=== PATIENT | male | born 1945 | race Caucasian/White ===

== ENCOUNTER 2020-05-15 15:56 | Inpatient (IN) ==
[2020-05-15] MEDS ORDERED: ACETAMINOPHEN 500 MG TABLET PO STA (16:29)
[2020-05-15 16:53] LABS: Basophils % 0.4 % (0.0-0.8); Eosinophils % 0.1 % (0.00-10.9); Hematocrit 47.5 VOL% (42.0-52.0); Hemoglobin 15.7 GM/DL (14.0-18.0); Immature Granulocytes % 1.1 %; Immature Granulocytes Absolute 0.11 #; Lymphocytes # 0.4 10*3/uL (1.4-4.0); Lymphocytes % 3.9 % (21.2-54.2); Mean Corpuscular HGB Conc 33.1 GM/DL (32-36); Mean Corpuscular Volume 84.2 FL (87-102); Mean Platelet Volume 11.9 FL (9.6-12.0); Monocytes % 6.9 % (1.7-12.7); Neutrophils % 87.6 % (38.7-73.9); Platelet Count 170 T/CUMM (130-400); Red Blood Count 5.64 MC/CUMM (3.8-5.5); Red Cell Distribution Width 15.1 % (9.3-17.3); White Blood Count 9.9 T/CUMM (4-12)
[2020-05-15 17:03] LABS: PT Patient Result 10.8 SECS (9.8-11.9)
[2020-05-15 17:12] LABS: Alanine Aminotransferase 49 U/L (16-61); Albumin 2.4 G/DL (3.4-5.0); Alkaline Phosphatase 62 U/L (45-117); Aspartate Amino Transferase 43 U/L (0-37); Bilirubin,Total < 0.39 MG/DL (0.2-1.0); Blood Urea Nitrogen 44 MG/DL (7-18); Calcium 8.8 MG/DL (8.5-10.1); Carbon Dioxide 22 MMOL/L (21-32); Estimated Glom Filtration Rate 27 ML/MIN; Glucose 286 MG/DL (74-106); Osmolality,Calculated 286.4 MOS/KG (273-304); Potassium 4.4 MMOL/L (3.5-5.1); Sodium 133 MMOL/L (136-145); Total Protein 6.8 G/DL (5.0-7.5)
[2020-05-15 17:13] LABS: Band Neutrophils 1 % (0-10); Lymphocytes 5 % (20-55); Platelet Estimate Adequate; Segmented Neutrophils 88 % (50-85); Total Cells Counted 100
[2020-05-15] MEDS ORDERED: VANCOMYCIN INJ 1,000 MG in SODIUM CHLORIDE 0.9% 100 ML IV STA (17:43)
[2020-05-15] MEDS ORDERED: VANCOMYCIN INJ 1,000 MG in SODIUM CHLORIDE 0.9% 250 ML IV STA (17:46)
[2020-05-15] MEDS ORDERED: cefTRIAXone 2,000 MG in SODIUM CHLORIDE 0.9% 100 ML IV STA (17:48)
[2020-05-15 17:51] LABS: Bacteria,Urine Occasional /HPF (Few); Bilirubin,Urine Negative (Negative); Blood, Urine Small mg/dL (Negative); Glucose,Urine (UA) >=500 mg/dL (Negative); Ketones,Urine Negative (Negative); Mucus,Urine Occasional /LPF (Occasional); Nitrite,Urine Negative (Negative); Protein,Urine >=500 MG/DL; RBC,Urine 3 /HPF (0-4); Urine Appearance Slightly Hazy (Clear); Urine Color Yellow (Yellow); Urine Specific Gravity 1.022 (1.001-1.035); Urine Urobilinogen < 2.0 EU/DL (0.2-1.0); WBC,Urine 2 /HPF (0-6)
[2020-05-15 18:41] LABS: Lymphocytes,CSF 2 %; Monocytes,CSF 17 %; Neutrophils,CSF 81 %
[2020-05-15 18:43] LABS: Appearance,CSF Cloudy; Red Blood Cell,CSF > 100000 C/CUMM
[2020-05-15 18:44] LABS: White Blood Cell,CSF 3300 C/CUMM
[2020-05-15 18:59] LABS: Glucose,CSF 109 MG/DL (40-70)
[2020-05-15] MEDS ORDERED: SODIUM CHLORIDE 0.9% 2,000 ML IV STA (19:40)
[2020-05-15] MEDS ORDERED: DEXTROSE 50% 25 GM/50 ML VIAL IV PRN ×2 (19:41)
[2020-05-15] MEDS ORDERED: GLUCAGON 1 MG VIAL IM PRN ×2 (19:41)
[2020-05-15] MEDS ORDERED: ONDANSETRON 4 MG/2 ML VIAL IV PRN (19:41)
[2020-05-15] MEDS ORDERED: FLUTICASONE 50 MCG NASAL SPRAY 16 GM BOTTLE BOTH NARES PRN (19:56)
[2020-05-15] MEDS ORDERED: SODIUM CHLORIDE 0.9% 1,000 ML IV STA (20:08)
[2020-05-15] MEDS: hydrALAZINE 20 MG/1 ML VIAL IV PRN (20:52)
[2020-05-15] MEDS: INSULIN REGULAR 100 UNIT/ML SUBCUT SCH (22:06)
[2020-05-15] MEDS: CYCLOBENZAPRINE 10 MG TABLET PO SCH (22:06)
[2020-05-15] MEDS: AMPICILLIN INJ 2,000 MG in SODIUM CHLORIDE 0.9% 100 ML IV SCH (22:07)
[2020-05-15] MEDS: ACYCLOVIR INJ 700 MG in SODIUM CHLORIDE 0.9% 100 ML IV SCH (23:18)
[2020-05-16] MEDS: AMPICILLIN INJ 2,000 MG in SODIUM CHLORIDE 0.9% 100 ML IV SCH ×3 (03:29→16:18)
[2020-05-16] MEDS ORDERED: VANCOMYCIN INJ 1,000 MG in SODIUM CHLORIDE 0.9% 250 ML IV SCH ×2 (04:00→17:00)
[2020-05-16 06:03] LABS: Basophils # 0.1 10*3/uL (0.0-0.2); Basophils % 0.6 % (0.0-0.8); Eosinophils # 0.1 10*3/uL (0.0-0.87); Eosinophils % 0.4 % (0.00-10.9); Hematocrit 36.7 VOL% (42.0-52.0); Immature Granulocytes % 0.8 %; Immature Granulocytes Absolute 0.14 #; Lymphocytes # 1.2 10*3/uL (1.4-4.0); Lymphocytes % 7.4 % (21.2-54.2); Mean Corpuscular HGB Conc 33.8 GM/DL (32-36); Mean Platelet Volume 12.3 FL (9.6-12.0); Monocytes % 10.4 % (1.7-12.7); Neutrophils % 80.4 % (38.7-73.9); Platelet Count 217 T/CUMM (130-400); Red Blood Count 4.37 MC/CUMM (3.8-5.5); Red Cell Distribution Width 15.2 % (9.3-17.3); White Blood Count 16.8 T/CUMM (4-12)
[2020-05-16 06:05] LABS: Hemoglobin 12.4 GM/DL (14.0-18.0)
[2020-05-16 06:21] LABS: Calcium 8.5 MG/DL (8.5-10.1); Osmolality,Calculated 282.8 MOS/KG (273-304); Potassium 4.2 MMOL/L (3.5-5.1); Thyroid Stimulating Hormone 4.45 uIU/ml (0.358-3.74)
[2020-05-16] MEDS: sitaGLIPtin 25 MG TABLET PO SCH (08:23)
[2020-05-16] MEDS: ENOXAPARIN 30 MG/0.3 ML SYRINGE SUBCUT SCH (08:23)
[2020-05-16] MEDS: NEBIVOLOL 5 MG TABLET PO SCH (08:23)
[2020-05-16] MEDS: cefTRIAXone 2,000 MG in SYRINGE 1 EACH IV SCH ×2 (08:23→20:34)
[2020-05-16] MEDS: CYCLOBENZAPRINE 10 MG TABLET PO SCH ×3 (08:23→20:34)
[2020-05-16] MEDS: ASPIRIN EC 81 MG TABLET PO SCH (08:23)
[2020-05-16] MEDS: LEVOTHYROXINE 75 MCG TABLET PO SCH (08:23)
[2020-05-16] MEDS: INSULIN GLARGINE 100 UNIT/ML SUBCUT SCH (08:24)
[2020-05-16] MEDS ORDERED: predniSONE 5 MG TABLET PO SCH (09:00)
[2020-05-16] MEDS: ACYCLOVIR INJ 700 MG in SODIUM CHLORIDE 0.9% 100 ML IV SCH ×2 (11:56→23:54)
[2020-05-16] MEDS: INSULIN REGULAR 100 UNIT/ML SUBCUT SCH ×4 (14:14→20:35)
[2020-05-16] MEDS ORDERED: TROLAMINE SALICYLATE 10% CREAM 85 GM TUBE TOP PRN (15:21)
[2020-05-16] MEDS: predniSONE 20 MG TABLET PO SCH (16:18)
[2020-05-16] MEDS: VANCOMYCIN INJ 2,000 MG in SODIUM CHLORIDE 0.9% 500 ML IV SCH (20:34)
[2020-05-17] MEDS: AMPICILLIN INJ 2,000 MG in SODIUM CHLORIDE 0.9% 100 ML IV SCH ×5 (00:45→23:45)
[2020-05-17 06:00] LABS: Basophils # 0.1 10*3/uL (0.0-0.2); Basophils % 0.4 % (0.0-0.8); Eosinophils % 0.1 % (0.00-10.9); Hematocrit 33.2 VOL% (42.0-52.0); Hemoglobin 10.9 GM/DL (14.0-18.0); Immature Granulocytes % 0.8 %; Immature Granulocytes Absolute 0.11 #; Lymphocytes # 0.9 10*3/uL (1.4-4.0); Mean Corpuscular HGB Conc 32.8 GM/DL (32-36); Mean Corpuscular Volume 84.9 FL (87-102); Mean Platelet Volume 12.5 FL (9.6-12.0); Monocytes % 9.8 % (1.7-12.7); Neutrophils % 81.9 % (38.7-73.9); Platelet Count 175 T/CUMM (130-400); Red Blood Count 3.91 MC/CUMM (3.8-5.5); Red Cell Distribution Width 15.3 % (9.3-17.3); White Blood Count 13.1 T/CUMM (4-12)
[2020-05-17 06:14] LABS: Calcium 7.8 MG/DL (8.5-10.1); Osmolality,Calculated 285.1 MOS/KG (273-304); Osmolality,Calculated 286.1 MOS/KG (273-304); Potassium 4.2 MMOL/L (3.5-5.1)
[2020-05-17] MEDS: INSULIN REGULAR 100 UNIT/ML SUBCUT SCH ×4 (09:07→21:37)
[2020-05-17] MEDS: ENOXAPARIN 30 MG/0.3 ML SYRINGE SUBCUT SCH (09:10)
[2020-05-17] MEDS: INSULIN GLARGINE 100 UNIT/ML SUBCUT SCH (09:10)
[2020-05-17] MEDS: CYCLOBENZAPRINE 10 MG TABLET PO SCH ×3 (09:11→21:21)
[2020-05-17] MEDS: LEVOTHYROXINE 75 MCG TABLET PO SCH (09:11)
[2020-05-17] MEDS: NEBIVOLOL 5 MG TABLET PO SCH (09:11)
[2020-05-17] MEDS: cefTRIAXone 2,000 MG in SYRINGE 1 EACH IV SCH ×2 (09:11→21:22)
[2020-05-17] MEDS: MAGNESIUM HYDROXIDE SUSP 30 ML UDCUP PO PRN (09:11)
[2020-05-17] MEDS: ASPIRIN EC 81 MG TABLET PO SCH (09:11)
[2020-05-17] MEDS: sitaGLIPtin 25 MG TABLET PO SCH (09:11)
[2020-05-17] MEDS: predniSONE 20 MG TABLET PO SCH (09:11)
[2020-05-17] MEDS: LOSARTAN 50 MG TABLET PO SCH (09:11)
[2020-05-17] MEDS ORDERED: MORPHINE 4 MG/1 ML VIAL IV ONE (10:30)
[2020-05-17] MEDS: POLYETHYLENE GLYCOL POWDER 17 GM PACK PO SCH (11:44)
[2020-05-17] MEDS: ACYCLOVIR INJ 700 MG in SODIUM CHLORIDE 0.9% 100 ML IV SCH (11:59)
[2020-05-17] MEDS: VANCOMYCIN INJ 2,000 MG in SODIUM CHLORIDE 0.9% 500 ML IV SCH (21:20)
[2020-05-17] MEDS: oxyCODONE/ACETAMINOPHEN 5-325 MG TABLET PO PRN (21:21)
[2020-05-17] MEDS: CHLORHEXIDINE 0.12% ORAL RINSE 60 ML BOTTLE SWISH/SPIT SCH (21:22)
[2020-05-18] MEDS: ACYCLOVIR INJ 700 MG in SODIUM CHLORIDE 0.9% 100 ML IV SCH (00:49)
[2020-05-18] MEDS: oxyCODONE/ACETAMINOPHEN 5-325 MG TABLET PO PRN ×3 (05:27→18:00)
[2020-05-18] MEDS: AMPICILLIN INJ 2,000 MG in SODIUM CHLORIDE 0.9% 100 ML IV SCH ×3 (05:28→18:00)
[2020-05-18] MEDS: MAGNESIUM HYDROXIDE SUSP 30 ML UDCUP PO PRN (05:28)
[2020-05-18 05:49] LABS: Basophils # 0.1 10*3/uL (0.0-0.2); Basophils % 0.4 % (0.0-0.8); Eosinophils # 0.1 10*3/uL (0.0-0.87); Eosinophils % 0.7 % (0.00-10.9); Hematocrit 32.6 VOL% (42.0-52.0); Hemoglobin 10.8 GM/DL (14.0-18.0); Immature Granulocytes Absolute 0.12 #; Lymphocytes # 1.1 10*3/uL (1.4-4.0); Lymphocytes % 9.3 % (21.2-54.2); Mean Corpuscular HGB Conc 33.1 GM/DL (32-36); Mean Corpuscular Volume 84.9 FL (87-102); Monocytes % 11.9 % (1.7-12.7); Neutrophils % 76.7 % (38.7-73.9); Platelet Count 198 T/CUMM (130-400); Red Blood Count 3.84 MC/CUMM (3.8-5.5); Red Cell Distribution Width 15.2 % (9.3-17.3); White Blood Count 12.2 T/CUMM (4-12)
[2020-05-18 06:02] LABS: Osmolality,Calculated 290.7 MOS/KG (273-304); Potassium 3.8 MMOL/L (3.5-5.1)
[2020-05-18] MEDS: INSULIN REGULAR 100 UNIT/ML SUBCUT SCH ×4 (08:11→21:21)
[2020-05-18] MEDS: cefTRIAXone 2,000 MG in SYRINGE 1 EACH IV SCH ×2 (08:39→21:22)
[2020-05-18] MEDS: NEBIVOLOL 5 MG TABLET PO SCH (08:41)
[2020-05-18] MEDS: predniSONE 20 MG TABLET PO SCH (08:41)
[2020-05-18] MEDS: sitaGLIPtin 25 MG TABLET PO SCH (08:41)
[2020-05-18] MEDS: ASPIRIN EC 81 MG TABLET PO SCH (08:41)
[2020-05-18] MEDS: LOSARTAN 50 MG TABLET PO SCH (08:42)
[2020-05-18] MEDS: CYCLOBENZAPRINE 10 MG TABLET PO SCH ×3 (08:42→21:23)
[2020-05-18] MEDS: ENOXAPARIN 30 MG/0.3 ML SYRINGE SUBCUT SCH (08:44)
[2020-05-18] MEDS: INSULIN GLARGINE 100 UNIT/ML SUBCUT SCH (08:44)
[2020-05-18] MEDS: CHLORHEXIDINE 0.12% ORAL RINSE 60 ML BOTTLE SWISH/SPIT SCH ×2 (08:44→21:23)
[2020-05-18] MEDS: POLYETHYLENE GLYCOL POWDER 17 GM PACK PO SCH (08:45)
[2020-05-18] MEDS: VANCOMYCIN INJ 2,000 MG in SODIUM CHLORIDE 0.9% 500 ML IV SCH (20:26)
[2020-05-19] MEDS: oxyCODONE/ACETAMINOPHEN 5-325 MG TABLET PO PRN ×4 (00:24→21:24)
[2020-05-19] MEDS: AMPICILLIN INJ 2,000 MG in SODIUM CHLORIDE 0.9% 100 ML IV SCH ×4 (00:24→23:52)
[2020-05-19] MEDS: LEVOTHYROXINE 75 MCG TABLET PO SCH (05:52)
[2020-05-19 05:54] LABS: Basophils % 0.4 % (0.0-0.8); Eosinophils # 0.1 10*3/uL (0.0-0.87); Eosinophils % 1.1 % (0.00-10.9); Hematocrit 32.8 VOL% (42.0-52.0); Hemoglobin 11.1 GM/DL (14.0-18.0); Immature Granulocytes Absolute 0.11 #; Lymphocytes # 0.8 10*3/uL (1.4-4.0); Lymphocytes % 7.9 % (21.2-54.2); Mean Corpuscular HGB Conc 33.8 GM/DL (32-36); Mean Corpuscular Volume 82.6 FL (87-102); Monocytes % 11.8 % (1.7-12.7); Neutrophils % 77.8 % (38.7-73.9); Platelet Count 178 T/CUMM (130-400); Red Blood Count 3.97 MC/CUMM (3.8-5.5); White Blood Count 10.7 T/CUMM (4-12)
[2020-05-19 06:14] LABS: Calcium 8.3 MG/DL (8.5-10.1); Potassium 3.7 MMOL/L (3.5-5.1)
[2020-05-19] MEDS: INSULIN REGULAR 100 UNIT/ML SUBCUT SCH ×4 (07:45→21:24)
[2020-05-19] MEDS: POLYETHYLENE GLYCOL POWDER 17 GM PACK PO SCH (09:33)
[2020-05-19] MEDS: VANCOMYCIN INJ 2,000 MG in SODIUM CHLORIDE 0.9% 500 ML IV SCH (09:33)
[2020-05-19] MEDS: cefTRIAXone 2,000 MG in SYRINGE 1 EACH IV SCH ×2 (09:34→21:22)
[2020-05-19] MEDS: INSULIN GLARGINE 100 UNIT/ML SUBCUT SCH (09:34)
[2020-05-19] MEDS: ENOXAPARIN 30 MG/0.3 ML SYRINGE SUBCUT SCH (09:34)
[2020-05-19] MEDS: ASPIRIN EC 81 MG TABLET PO SCH (09:35)
[2020-05-19] MEDS: predniSONE 20 MG TABLET PO SCH (09:35)
[2020-05-19] MEDS: sitaGLIPtin 25 MG TABLET PO SCH (09:35)
[2020-05-19] MEDS: LOSARTAN 50 MG TABLET PO SCH (09:35)
[2020-05-19] MEDS: NEBIVOLOL 5 MG TABLET PO SCH (09:35)
[2020-05-19] MEDS: CHLORHEXIDINE 0.12% ORAL RINSE 60 ML BOTTLE SWISH/SPIT SCH ×2 (09:36→21:22)
[2020-05-19] MEDS: CYCLOBENZAPRINE 10 MG TABLET PO SCH (12:08)
[2020-05-19] MEDS ORDERED: INSULIN REGULAR 100 UNIT/ML SUBCUT ONE (18:31)
[2020-05-20 04:18] LABS: Basophils % 0.3 % (0.0-0.8); Eosinophils # 0.1 10*3/uL (0.0-0.87); Eosinophils % 0.6 % (0.00-10.9); Hematocrit 32.8 VOL% (42.0-52.0); Hemoglobin 11.2 GM/DL (14.0-18.0); Immature Granulocytes % 1.6 %; Immature Granulocytes Absolute 0.22 #; Lymphocytes # 0.8 10*3/uL (1.4-4.0); Lymphocytes % 6.2 % (21.2-54.2); Mean Corpuscular HGB Conc 34.1 GM/DL (32-36); Mean Corpuscular Volume 82.2 FL (87-102); Mean Platelet Volume 12.3 FL (9.6-12.0); Monocytes % 10.4 % (1.7-12.7); Neutrophils % 80.9 % (38.7-73.9); Platelet Count 194 T/CUMM (130-400); Red Blood Count 3.99 MC/CUMM (3.8-5.5); Red Cell Distribution Width 15.1 % (9.3-17.3); White Blood Count 13.6 T/CUMM (4-12)
[2020-05-20 04:32] LABS: Calcium 8.2 MG/DL (8.5-10.1); Osmolality,Calculated 286.7 MOS/KG (273-304); Potassium 3.4 MMOL/L (3.5-5.1)
[2020-05-20] MEDS: AMPICILLIN INJ 2,000 MG in SODIUM CHLORIDE 0.9% 100 ML IV SCH ×3 (05:18→20:41)
[2020-05-20] MEDS: LEVOTHYROXINE 75 MCG TABLET PO SCH (06:33)
[2020-05-20] MEDS: INSULIN REGULAR 100 UNIT/ML SUBCUT SCH ×4 (08:33→20:35)
[2020-05-20] MEDS: ENOXAPARIN 30 MG/0.3 ML SYRINGE SUBCUT SCH (08:39)
[2020-05-20] MEDS: INSULIN GLARGINE 100 UNIT/ML SUBCUT SCH (08:39)
[2020-05-20] MEDS: sitaGLIPtin 25 MG TABLET PO SCH (08:39)
[2020-05-20] MEDS: cefTRIAXone 2,000 MG in SYRINGE 1 EACH IV SCH ×2 (08:39→20:35)
[2020-05-20] MEDS: LOSARTAN 50 MG TABLET PO SCH (08:39)
[2020-05-20] MEDS: CHLORHEXIDINE 0.12% ORAL RINSE 60 ML BOTTLE SWISH/SPIT SCH ×2 (08:39→20:30)
[2020-05-20] MEDS: ASPIRIN EC 81 MG TABLET PO SCH (08:40)
[2020-05-20] MEDS: NEBIVOLOL 5 MG TABLET PO SCH (08:40)
[2020-05-20] MEDS: POLYETHYLENE GLYCOL POWDER 17 GM PACK PO SCH (08:40)
[2020-05-20] MEDS: predniSONE 5 MG TABLET PO SCH (08:40)
[2020-05-20] MEDS: ACETAMINOPHEN 500 MG TABLET PO PRN ×3 (08:40→20:34)
[2020-05-20] MEDS ORDERED: POTASSIUM CHLORIDE 20 MEQ TABLET PO ONE (09:00)
[2020-05-20] MEDS: hydrALAZINE 20 MG/1 ML VIAL IV PRN (17:04)
[2020-05-20] MEDS: LORATADINE 10 MG TABLET PO SCH (18:14)
[2020-05-20] MEDS: oxyCODONE/ACETAMINOPHEN 5-325 MG TABLET PO PRN ×2 (18:20→22:10)
[2020-05-20] MEDS: VANCOMYCIN INJ 2,000 MG in SODIUM CHLORIDE 0.9% 500 ML IV SCH (21:21)
[2020-05-20] MEDS ORDERED: NYSTATIN CREAM 15 GM TUBE TOP PRN (21:33)
[2020-05-20] MEDS ORDERED: FLUCONAZOLE 100 MG TABLET PO ONE (21:44)
[2020-05-21] MEDS: AMPICILLIN INJ 2,000 MG in SODIUM CHLORIDE 0.9% 100 ML IV SCH ×4 (01:24→20:15)
[2020-05-21] MEDS: hydrALAZINE 20 MG/1 ML VIAL IV PRN ×3 (01:58→17:19)
[2020-05-21] MEDS: oxyCODONE/ACETAMINOPHEN 5-325 MG TABLET PO PRN ×4 (03:37→20:10)
[2020-05-21 05:54] LABS: Basophils # 0.1 10*3/uL (0.0-0.2); Basophils % 0.4 % (0.0-0.8); Eosinophils % 0.1 % (0.00-10.9); Hematocrit 38.3 VOL% (42.0-52.0); Hemoglobin 13.1 GM/DL (14.0-18.0); Immature Granulocytes % 1.2 %; Immature Granulocytes Absolute 0.25 #; Lymphocytes # 0.4 10*3/uL (1.4-4.0); Lymphocytes % 1.7 % (21.2-54.2); Mean Corpuscular HGB Conc 34.2 GM/DL (32-36); Mean Corpuscular Volume 82.5 FL (87-102); Monocytes % 5.2 % (1.7-12.7); Neutrophils % 91.4 % (38.7-73.9); Platelet Count 238 T/CUMM (130-400); Red Blood Count 4.64 MC/CUMM (3.8-5.5); Red Cell Distribution Width 15.1 % (9.3-17.3); White Blood Count 21.7 T/CUMM (4-12)
[2020-05-21 06:05] LABS: Calcium 8.2 MG/DL (8.5-10.1); Osmolality,Calculated 285.2 MOS/KG (273-304); Potassium 4.2 MMOL/L (3.5-5.1)
[2020-05-21] MEDS: LEVOTHYROXINE 75 MCG TABLET PO SCH (06:26)
[2020-05-21 06:54] LABS: Lymphocytes 1 % (20-55); Polychromasia Slight; Segmented Neutrophils 98 % (50-85); Total Cells Counted 100
[2020-05-21 06:55] LABS: Hypochromasia Slight; Platelet Estimate Normal
[2020-05-21] MEDS: sitaGLIPtin 25 MG TABLET PO SCH (08:03)
[2020-05-21] MEDS: ASPIRIN EC 81 MG TABLET PO SCH (08:03)
[2020-05-21] MEDS: LOSARTAN 50 MG TABLET PO SCH (08:04)
[2020-05-21] MEDS: FLUCONAZOLE 100 MG TABLET PO SCH (08:04)
[2020-05-21] MEDS: ENOXAPARIN 30 MG/0.3 ML SYRINGE SUBCUT SCH (08:04)
[2020-05-21] MEDS: predniSONE 5 MG TABLET PO SCH (08:04)
[2020-05-21] MEDS: cefTRIAXone 2,000 MG in SYRINGE 1 EACH IV SCH ×2 (08:04→20:13)
[2020-05-21] MEDS: LORATADINE 10 MG TABLET PO SCH (08:04)
[2020-05-21] MEDS: NEBIVOLOL 5 MG TABLET PO SCH (08:04)
[2020-05-21] MEDS: POLYETHYLENE GLYCOL POWDER 17 GM PACK PO SCH (08:05)
[2020-05-21] MEDS: CHLORHEXIDINE 0.12% ORAL RINSE 60 ML BOTTLE SWISH/SPIT SCH ×2 (08:05→20:16)
[2020-05-21] MEDS: INSULIN REGULAR 100 UNIT/ML SUBCUT SCH ×4 (09:15→20:11)
[2020-05-21] MEDS: INSULIN GLARGINE 100 UNIT/ML SUBCUT SCH (09:16)
[2020-05-21] MEDS ORDERED: ALBUTEROL/IPRATROPIUM 3 ML NEB RESP TX PRN (10:41)
[2020-05-21] MEDS: MORPHINE 4 MG/1 ML VIAL IV PRN ×2 (11:53→21:14)
[2020-05-21] MEDS: ALBUTEROL/IPRATROPIUM 3 ML NEB RESP TX SCH ×4 (12:12→23:56)
[2020-05-21 12:30] LABS: Bilirubin,Urine Negative (Negative); Blood, Urine Small mg/dL (Negative); Glucose,Urine (UA) >=500 mg/dL (Negative); Ketones,Urine 5 mg/dL (Negative); Mucus,Urine Occasional /LPF (Occasional); Nitrite,Urine Negative (Negative); Protein,Urine >=500 MG/DL; RBC,Urine 15 /HPF (0-4); Squamous Epithelial Cell,Urine Occasional /HPF (0-10); Urine Appearance CLOUDY (Clear); Urine Color Yellow (Yellow); Urine Specific Gravity 1.022 (1.001-1.035); Urine Urobilinogen < 2.0 EU/DL (0.2-1.0); WBC,Urine 7 /HPF (0-6)
[2020-05-22] MEDS: AMPICILLIN INJ 2,000 MG in SODIUM CHLORIDE 0.9% 100 ML IV SCH ×4 (02:15→20:32)
[2020-05-22] MEDS: ALBUTEROL/IPRATROPIUM 3 ML NEB RESP TX SCH ×5 (03:24→20:12)
[2020-05-22] MEDS: oxyCODONE/ACETAMINOPHEN 5-325 MG TABLET PO PRN ×2 (04:21→09:24)
[2020-05-22] MEDS: hydrALAZINE 20 MG/1 ML VIAL IV PRN (04:43)
[2020-05-22 05:51] LABS: Basophils # 0.1 10*3/uL (0.0-0.2); Basophils % 0.4 % (0.0-0.8); Eosinophils # 0.1 10*3/uL (0.0-0.87); Eosinophils % 0.3 % (0.00-10.9); Hematocrit 38.1 VOL% (42.0-52.0); Hemoglobin 12.6 GM/DL (14.0-18.0); Immature Granulocytes % 1.3 %; Immature Granulocytes Absolute 0.26 #; Lymphocytes # 0.8 10*3/uL (1.4-4.0); Lymphocytes % 4.1 % (21.2-54.2); Mean Corpuscular HGB Conc 33.1 GM/DL (32-36); Mean Corpuscular Volume 84.5 FL (87-102); Mean Platelet Volume 12.6 FL (9.6-12.0); Monocytes % 8.4 % (1.7-12.7); Neutrophils % 85.5 % (38.7-73.9); Platelet Count 257 T/CUMM (130-400); Red Blood Count 4.51 MC/CUMM (3.8-5.5); Red Cell Distribution Width 15.4 % (9.3-17.3); White Blood Count 20.7 T/CUMM (4-12)
[2020-05-22] MEDS: LEVOTHYROXINE 75 MCG TABLET PO SCH (06:19)
[2020-05-22 06:38] LABS: Calcium 8.3 MG/DL (8.5-10.1); Potassium 3.6 MMOL/L (3.5-5.1)
[2020-05-22] MEDS: FLUCONAZOLE 100 MG TABLET PO SCH (08:43)
[2020-05-22] MEDS: LOSARTAN 50 MG TABLET PO SCH (08:43)
[2020-05-22] MEDS: NEBIVOLOL 10 MG TABLET PO SCH (08:43)
[2020-05-22] MEDS: LORATADINE 10 MG TABLET PO SCH (08:43)
[2020-05-22] MEDS: ENOXAPARIN 30 MG/0.3 ML SYRINGE SUBCUT SCH (08:44)
[2020-05-22] MEDS: ASPIRIN EC 81 MG TABLET PO SCH (08:44)
[2020-05-22] MEDS: predniSONE 5 MG TABLET PO SCH (08:44)
[2020-05-22] MEDS: sitaGLIPtin 25 MG TABLET PO SCH (08:44)
[2020-05-22] MEDS: INSULIN REGULAR 100 UNIT/ML SUBCUT SCH ×4 (08:46→20:33)
[2020-05-22] MEDS: INSULIN GLARGINE 100 UNIT/ML SUBCUT SCH (08:47)
[2020-05-22] MEDS: POLYETHYLENE GLYCOL POWDER 17 GM PACK PO SCH (08:47)
[2020-05-22] MEDS: cefTRIAXone 2,000 MG in SYRINGE 1 EACH IV SCH ×2 (08:48→20:28)
[2020-05-22] MEDS: CHLORHEXIDINE 0.12% ORAL RINSE 60 ML BOTTLE SWISH/SPIT SCH ×2 (08:48→20:43)
[2020-05-22 08:54] LABS: Lymphocytes 2 % (20-55); Segmented Neutrophils 96 % (50-85); Total Cells Counted 100
[2020-05-22 08:55] LABS: Platelet Estimate Normal; Polychromasia Slight
[2020-05-22] MEDS: VANCOMYCIN INJ 2,000 MG in SODIUM CHLORIDE 0.9% 500 ML IV SCH (10:06)
[2020-05-22] MEDS: MORPHINE 4 MG/1 ML VIAL IV PRN (12:17)
[2020-05-22] MEDS ORDERED: MYLANTA/LIDO VISC 2:1 300 ML BOTTLE SWISH/SPIT PRN (12:27)
[2020-05-23] MEDS: ALBUTEROL/IPRATROPIUM 3 ML NEB RESP TX SCH ×5 (00:20→14:34)
[2020-05-23] MEDS: AMPICILLIN INJ 2,000 MG in SODIUM CHLORIDE 0.9% 100 ML IV SCH ×3 (02:17→14:00)
[2020-05-23] MEDS: oxyCODONE/ACETAMINOPHEN 5-325 MG TABLET PO PRN ×3 (02:56→16:01)
[2020-05-23 05:59] LABS: Basophils # 0.1 10*3/uL (0.0-0.2); Basophils % 0.5 % (0.0-0.8); Eosinophils # 0.2 10*3/uL (0.0-0.87); Eosinophils % 0.9 % (0.00-10.9); Hematocrit 33.1 VOL% (42.0-52.0); Hemoglobin 11.2 GM/DL (14.0-18.0); Immature Granulocytes % 1.1 %; Immature Granulocytes Absolute 0.18 #; Lymphocytes # 0.9 10*3/uL (1.4-4.0); Lymphocytes % 5.4 % (21.2-54.2); Mean Corpuscular HGB Conc 33.8 GM/DL (32-36); Mean Corpuscular Volume 83.4 FL (87-102); Mean Platelet Volume 12.4 FL (9.6-12.0); Monocytes % 10.3 % (1.7-12.7); Neutrophils % 81.8 % (38.7-73.9); Platelet Count 218 T/CUMM (130-400); Red Blood Count 3.97 MC/CUMM (3.8-5.5); Red Cell Distribution Width 15.7 % (9.3-17.3); White Blood Count 16.2 T/CUMM (4-12)
[2020-05-23 06:17] LABS: Calcium 8.3 MG/DL (8.5-10.1); Osmolality,Calculated 283.1 MOS/KG (273-304); Potassium 3.6 MMOL/L (3.5-5.1)
[2020-05-23] MEDS: LEVOTHYROXINE 75 MCG TABLET PO SCH (06:31)
[2020-05-23] MEDS: INSULIN REGULAR 100 UNIT/ML SUBCUT SCH ×3 (07:30→16:30)
[2020-05-23] MEDS: NEBIVOLOL 10 MG TABLET PO SCH (09:09)
[2020-05-23] MEDS: LORATADINE 10 MG TABLET PO SCH (09:09)
[2020-05-23] MEDS: ASPIRIN EC 81 MG TABLET PO SCH (09:09)
[2020-05-23] MEDS: sitaGLIPtin 25 MG TABLET PO SCH (09:10)
[2020-05-23] MEDS: FLUCONAZOLE 100 MG TABLET PO SCH (09:10)
[2020-05-23] MEDS: LOSARTAN 50 MG TABLET PO SCH (09:10)
[2020-05-23] MEDS: INSULIN GLARGINE 100 UNIT/ML SUBCUT SCH (09:11)
[2020-05-23] MEDS: ENOXAPARIN 30 MG/0.3 ML SYRINGE SUBCUT SCH (09:11)
[2020-05-23] MEDS: predniSONE 5 MG TABLET PO SCH (09:12)
[2020-05-23] MEDS: cefTRIAXone 2,000 MG in SYRINGE 1 EACH IV SCH (09:25)
[2020-05-23] MEDS: CHLORHEXIDINE 0.12% ORAL RINSE 60 ML BOTTLE SWISH/SPIT SCH (09:35)
[2020-05-23] MEDS: POLYETHYLENE GLYCOL POWDER 17 GM PACK PO SCH (09:35)
[2020-05-23 11:49] VITALS: BP 180/56
[2020-05-23] MEDS ORDERED: INSULIN LISPRO 100 UNIT/ML SUBCUT SCH (12:00)
== END 2020-05-23 16:50 | disposition swing bed (61) | DRG 94 ==
LOC: N.ED 15:56 → N.EDINP 18:43 → N.3E 21:01 → SUATTDRO 21:15
PROVIDERS: ADMIT Internal Medicine; ATTEND Internal Medicine Geriatric Medicine